=== PATIENT | female | born 1975 | race American Indian/Alaskan Native ===

== ENCOUNTER 2021-09-19 12:16 | Outpatient (CLI) | payer MEDICAID ==
[2021-09-19 13:08] LABS: Hematocrit 36.3 % (30.3-42.9); Hemoglobin 11.3 gm/dl (10.1-14.3); Mean Corpuscular HGB Conc 31 % (30-34); Mean Corpuscular Volume 81 fl (79-97); Platelet Count 314 K/mm3 (140-440); Red Blood Count 4.49 M/mm3 (3.65-5.03); Red Cell Distribution Width 17.6 % (13.2-15.2)
[2021-09-19 13:42] LABS: Albumin 3.2 g/dL (3.9-5); Calcium 8.9 mg/dL (8.4-10.2)
== END 2021-09-19 12:17 | disposition home or self-care (01) ==
LOC: LAB 12:16
PROVIDERS: ATTEND Internal Medicine
DX: J44.9 Chronic obstructive pulmonary disease, unspecified (principal); G47.33 Obstructive sleep apnea (adult) (pediatric); J45.909 Unspecified asthma, uncomplicated; E11.9 Type 2 diabetes mellitus without complications; J30.9 Allergic rhinitis, unspecified; D64.9 Anemia, unspecified; F32.9 Major depressive disorder, single episode, unspecified; M10.9 Gout, unspecified; I10 Essential (primary) hypertension; Z68.45 Body mass index [BMI] 70 or greater, adult
CPT/HCPCS: 36415; 80053; 82785; 84436; 84443; 85027

== ENCOUNTER 2022-02-23 23:17 | Inpatient (IN) | payer MEDICAID ==
[2022-02-24] MEDS ORDERED: ASPIRIN 325 MG TAB PO ONE (02:06)
[2022-02-24] MEDS ORDERED: NITROGLYCERIN 0.4 MG TAB SUBL SL PRN ×2 (02:21→05:00)
--- NOTE | 2022-02-24 02:26 | Emergency Department Report ---
ED General Adult HPI - General Chief complaint: Chest Pain Stated complaint: CHEST PAIN PUI?: No Time Seen by Provider: 02/24/22 02:15 Source: patient Mode of arrival: Stretcher Limitations: No Limitations - History of Present Illness Initial comments: 46-year-old female with medical history of hypertension, hyperlipidemia, COPD, asthma, brain tumor; brought in by EMS with concerns of chest discomfort since 1999 which patient states is a heaviness like sensation that is localized and not radiate anywhere else. According patient is worse when she lays flat is better when she sits up. Patient said that she is a smoker for the past 10 years which she smokes about half packs a day. Patient denies using cocaine. Patient endorsed myocardial infarction in her father less than 65 years old. Patient's blood pressure is 221/113 at the time my evaluation and patient said that she is pentecostal with her blood pressure medications. At the time my evaluation patient denies any other discomfort. Patient denies fever chill night sweat dizziness blurred vision lightheadedness headache tinnitus ear pain runny nose sore throat loss of taste loss of smell palpitation short of breath cough abdominal pain nausea vomiting diarrhea constipation joint pain muscle pain new rash and heat or cold intolerance. - Related Data Home Medications Medication Instructions Recorded Confirmed Last Taken ALBUTEROL NEB's [Proventil 0.083% 2.5 mg IH Q6H PRN 02/25/22 02/25/22 Unknown NEBS] Fluticasone/Salmeterol [Advair 1 puff IH BID 02/25/22 02/25/22 Unknown Diskus 500-50 mcg] Furosemide [Lasix TAB] 40 mg PO QDAY 02/25/22 02/25/22 Unknown Ipratropium [Atrovent] 0.5 mg IH Q6HRT 02/25/22 02/25/22 Unknown Potassium Chloride [K-Dur] 10 meq PO QDAY 02/25/22 02/25/22 Unknown carvediloL [Coreg] 25 mg PO BID 02/25/22 02/25/22 Unknown Allergies Allergy/AdvReac Type Severity Reaction Status Date / Time lisinopril Allergy Swelling Verified 02/25/22 12:17 ED Review of Systems ROS: Stated complaint: CHEST PAIN Other details as noted in HPI Comment: All other systems reviewed and negative Constitutional: no symptoms reported, see HPI Eyes: as per HPI ENT: as per HPI Respiratory: no symptoms reported, see HPI Cardiovascular: as per HPI, chest pain. denies: palpitations, dyspnea on exertion, orthopnea, edema, syncope, paroxysmal nocturnal dyspnea Endocrine: no symptoms reported, see HPI Gastrointestinal: as per HPI Genitourinary: as per HPI Musculoskeletal: as per HPI Skin: as per HPI Neurological: as per HPI Psychiatric: as per HPI Hematological/Lymphatic: as per HPI ED Past Medical Hx - Past Medical History Previous Medical History?: Yes Hx Hypertension: Yes Hx Heart Attack/AMI: No Hx Congestive Heart Failure: No Hx Diabetes: No Hx Asthma: Yes Hx COPD: Yes Additional medical history: Brain Tumor. O2 dependent. MORBID OBESITY - Surgical History Past Surgical History?: No - Social History Smoking Status: Current Every Day Smoker Substance Use Type: None - Medications Home Medications: Home Medications Medication Instructions Recorded Confirmed Last Taken Type ALBUTEROL NEB's [Proventil 0.083% 2.5 mg IH Q6H PRN 02/25/22 02/25/22 Unknown History NEBS] Fluticasone/Salmeterol [Advair 1 puff IH BID 02/25/22 02/25/22 Unknown History Diskus 500-50 mcg] Furosemide [Lasix TAB] 40 mg PO QDAY 02/25/22 02/25/22 Unknown History Ipratropium [Atrovent] 0.5 mg IH Q6HRT 02/25/22 02/25/22 Unknown History Potassium Chloride [K-Dur] 10 meq PO QDAY 02/25/22 02/25/22 Unknown History carvediloL [Coreg] 25 mg PO BID 02/25/22 02/25/22 Unknown History ED Physical Exam - General Limitations: No Limitations General appearance: alert, in no apparent distress, obese - Head Head exam: Present: atraumatic, normocephalic, normal inspection - Eye Eye exam: Present: normal appearance, PERRL, EOMI Pupils: Present: normal accommodation - ENT ENT exam: Present: normal exam, mucous membranes moist - Neck Neck exam: Present: normal inspection, full ROM - Respiratory Respiratory exam: Present: normal lung sounds bilaterally - Cardiovascular Cardiovascular Exam: Present: regular rate, normal rhythm, normal heart sounds ED Course Vital Signs 02/23/22 02/24/22 02/24/22 23:17 05:02 05:06 Temperature 98 F Pulse Rate 87 87 Respiratory 20 Rate Blood Pressure 168/98 212/101 Blood Pressure [Right] O2 Sat by Pulse 100 100 Oximetry 02/24/22 02/24/22 06:05 07:51 Temperature Pulse Rate 77 Respiratory 18 16 Rate Blood Pressure Blood Pressure 188/82 [Right] O2 Sat by Pulse 100 96 Oximetry - Reevaluation(s) Reevaluation #1: 02/24/22 03:53 HEART SCORE: 2 = [id number] (>3 RISK FACTORS = OBESE, HTN, HLD, SMOKER, FHX OF DC <65), T0 5 RISK FACTORS. 02/25/22 13:59 SPOKE TO HOSPITALIST WHO KINDLY ACCEPTED THE PATIENT. ED Medical Decision Making - Lab Data Result diagrams: 02/25/22 05:46 02/25/22 05:46 - EKG Data -: EKG Interpreted by Me EKG shows normal: sinus rhythm Rate: normal - EKG Data When compared to previous EKG there are: no significant change 02/24/22 03:53 EKG AT 02/23 AT 2234: SINUS RHYTHM W/ NO ST ELEVATION OR DEPRESSION. NO WELLEN WAVES. Critical care attestation.: If time is entered above; I have spent that time in minutes in the direct care of this critically ill patient, excluding procedure time. ED Disposition Clinical Impression: Atypical chest pain, ELY (acute kidney injury), Hypertensive crisis CHF (congestive heart failure) Qualifiers: Heart failure type: unspecified Heart failure chronicity: acute on chronic Qualified Code(s): I50.9 - Heart failure, unspecified Disposition: ADMITTED INPATIENT Is pt being admited?: Yes Does the pt Need Aspirin: Yes Condition: Stable Time of Disposition: 14:01
[2022-02-24 02:39] LABS: Basophils # (Auto) 0.2 K/mm3 (0.0-0.1); Basophils % (Auto) 2.5 % (0.0-1.8); Eosinophils # (Auto) 0.6 K/mm3 (0.0-0.4); Hematocrit 34.9 % (30.3-42.9); Hemoglobin 11.2 gm/dl (10.1-14.3); Lymphocytes # (Auto) 1.3 K/mm3 (1.2-5.4); Lymphocytes % (Auto) 13.9 % (13.4-35.0); Mean Corpuscular HGB Conc 32 % (30-34); Mean Corpuscular Volume 82 fl (79-97); Monocytes # (Auto) 0.7 K/mm3 (0.0-0.8); Monocytes % (Auto) 7.3 % (0.0-7.3); Platelet Count 290 K/mm3 (140-440); Red Blood Count 4.26 M/mm3 (3.65-5.03); Red Cell Distribution Width 17.6 % (13.2-15.2)
[2022-02-24 03:04] LABS: Creatine Kinase MB 3.2 ng/mL (0.0-4.0)
[2022-02-24 03:06] LABS: Alanine Aminotransferase 74 units/L (7-56); Albumin 3.7 g/dL (3.9-5); BUN/Creatinine Ratio 7; Blood Urea Nitrogen 16 mg/dL (7-17); Calcium 8.2 mg/dL (8.4-10.2); Hemolysis Index 24
--- NOTE | 2022-02-24 03:39 | XRay Report ---
CHEST 1 VIEW INDICATION / CLINICAL INFORMATION: chestpain. COMPARISON: 10/28/2010 FINDINGS: SUPPORT DEVICES: None. HEART / MEDIASTINUM: No significant abnormality. LUNGS / PLEURA: The radiograph is slightly underpenetrated due to the patient's body habitus as well as portable technique. There is pulmonary vascular congestion. The lungs are otherwise grossly clear without definite additional abnormality. No large pleural effusion.,. No pneumothorax. ADDITIONAL FINDINGS: No significant additional findings. IMPRESSION: 1. Suboptimal portable chest radiograph due to body habitus. 2. Pulmonary vascular congestion., Signer Name: Shirley Bowman MD Signed: 02/24/2022 3:34 AM Workstation Name: [id number]
[2022-02-24] MEDS ORDERED: MAGNESIUM HYDROXIDE (MOM) ORAL LIQD UDC PO PRN (05:00)
[2022-02-24] MEDS ORDERED: ACETAMINOPHEN 325 MG TAB PO PRN ×2 (05:00)
[2022-02-24] MEDS ORDERED: ONDANSETRON 4 MG/2 ML INJ IV PRN (05:00)
[2022-02-24] MEDS ORDERED: MORPHINE 2 MG/1 ML INJ IV PRN ×2 (05:00)
[2022-02-24] MEDS ORDERED: MORPHINE 4 MG/1 ML INJ IV PRN (05:00)
--- NOTE | 2022-02-24 05:17 | History and Physical Report ---
History of Present Illness Date of examination: 02/24/22 Date of admission: 02/24/2022 Chief complaint: Chest Pain History of present illness: 46-year-old -[place] female with known history of hypertension, hyperlipidemia, asthma, history of brain tumor brought into the emergency room today via EMS for evaluation of chest pain. Patient states she has been having heaviness on her chest for substernal. There has been no radiation. Heaviness is said to be worse upon lying flat and improves upon sitting up. Patient denies any cough, denies any shortness of breath, denies any fever or chills. Denies any headache or dizziness and denies any diaphoresis. Patient indicates that she just moved from [place] to [place] about a year ago and has not been able to establish with any primary care physician. She continues to smoke about a pack of cigarettes on a daily basis. She also indicates that she has a strong family history of [place] in father-when he was less than of 65 years old. Upon arrival in the emergency room, patient was found to be hypotensive with blood pressure systolic of 200s and diastolic of low 100s. She had a dose of IV labetalol. Work-up in the emergency room today, significant findings were that of creatinine of 2.2, BNP of 1983, AST of 48 and ALT 74, troponin within normal limits EKG did not show any acute findings Chest x-ray shows pulmonary vascular congestion. Patient being admitted with chest pain, hypertensive emergency, ELY and CHF exacerbation. Past History Past Medical History: COPD, hypertension, other (Asthma, Brain Tumor. O2 dependent. MORBID OBESITY) Social history: smoking (Current Every Day Smoker) Family history: no significant family history Medications and Allergies Allergies Allergy/AdvReac Type Severity Reaction Status Date / Time lisinopril Allergy Hives Verified 02/24/22 02:06 Active Meds: Active Medications Acetaminophen (Acetaminophen 325 Mg Tab) 650 mg PO Q4H PRN PRN Reason: Pain MILD(1-3)/Fever >100.5/ZAMORANO Acetaminophen (Acetaminophen 325 Mg Tab) 650 mg PO Q6H PRN PRN Reason: Pain, Mild (1-3) Aspirin (Aspirin Ec 325 Mg Tab) 325 mg PO QDAY EDWIN Magnesium Hydroxide (Magnesium Hydroxide (Mom) Oral Liqd Udc) 30 ml PO Q4H PRN PRN Reason: Constipation Morphine Sulfate (Morphine 2 Mg/1 Ml Inj) 2 mg IV Q4H PRN PRN Reason: Pain, Moderate (4-6) Morphine Sulfate (Morphine 4 Mg/1 Ml Inj) 4 mg IV Q4H PRN PRN Reason: Pain , Severe (7-10) Morphine Sulfate (Morphine 4 Mg/1 Ml Inj) 2 mg IV Q5MIN PRN PRN Reason: Chest Pain unrelieved by NTG Nitroglycerin (Nitroglycerin 0.4 Mg Tab Subl) 0.4 mg SL .Q5MIN PRN PRN Reason: Chest Pain Nitroglycerin (Nitroglycerin 0.4 Mg Tab Subl) 0.4 mg SL Q5M PRN PRN Reason: Chest Pain Ondansetron HCl (Ondansetron 4 Mg/2 Ml Inj) 4 mg IV Q8H PRN PRN Reason: Nausea And Vomiting Sodium Chloride (Sodium Chloride 0.9% 10 Ml Flush Syringe) 10 ml IV BID EDWIN Sodium Chloride (Sodium Chloride 0.9% 10 Ml Flush Syringe) 10 ml IV PRN PRN PRN Reason: LINE FLUSH Sodium Chloride (Sodium Chloride 0.9% 10 Ml Flush Syringe) 10 ml IV PRN PRN PRN Reason: LINE FLUSH Tramadol HCl (Tramadol 50 Mg Tab) 50 mg PO Q6H PRN PRN Reason: Pain, Moderate (4-6) Review of Systems Constitutional: no fever, no chills Ears, nose, mouth and throat: no nasal congestion, no sore throat Cardiovascular: chest pain, edema, no palpitations Respiratory: no cough, no shortness of breath Gastrointestinal: no abdominal pain, no nausea, no vomiting, no diarrhea Genitourinary Female: no flank pain, no dysuria, no hematuria Musculoskeletal: no neck pain, no low back pain Integumentary: no rash, no pruritis Neurological: no headaches, no confusion Psychiatric: no anxiety, no depression Endocrine: no polyphagia, no polydipsia, no polyuria, no nocturia Exam - Constitutional Vitals: Temp Pulse Resp BP Pulse Ox 98 F 87 20 212/101 100 02/23/22 23:17 02/24/22 05:06 02/23/22 23:17 02/24/22 05:06 02/23/22 23:17 General appearance: Present: no acute distress, obese (Morbidly Obese) - EENT Eyes: Present: PERRL, EOM intact. Absent: scleral icterus ENT: hearing intact, clear oral mucosa, dentition normal - Neck Neck: Present: supple, normal ROM - Respiratory Respiratory effort: normal Respiratory: bilateral: CTA - Cardiovascular Rhythm: regular Heart Sounds: Present: S1 & S2. Absent: gallop, systolic murmur, diastolic murmur, rub, click - Extremities Extremities: no ischemia, pulses intact, pulses symmetrical, normal temperature, normal color, Full ROM Extremity abnormal: edema (Trace bilateral ankle edema) Peripheral Pulses: within normal limits - Abdominal General gastrointestinal: Present: soft, non-tender, non-distended, normal bowel sounds. Absent: mass - Integumentary Integumentary: Present: clear, warm, dry, normal turgor. Absent: rash - Musculoskeletal Musculoskeletal: strength equal bilaterally - Psychiatric Psychiatric: appropriate mood/affect, intact judgment & insight, memory intact - Neurologic Neurologic: CNII-XII intact, no focal deficits, moves all extremities HEART Score - HEART Score Troponin: Troponin T < 0.010 ng/mL (0.00-0.029) 02/24/22 02:20 Results - Labs CBC & Chem 7: 02/24/22 02:20 02/24/22 02:20 Labs: Abnormal lab results 02/24/22 02/24/22 02/24/22 Range/Units 02:20 02:20 03:45 MCH 26 L (28-32) pg RDW 17.6 H (13.2-15.2) % Eos % (Auto) 7.0 H (0.0-4.3) % Baso % (Auto) 2.5 H (0.0-1.8) % Eos # (Auto) 0.6 H (0.0-0.4) K/mm3 Baso # (Auto) 0.2 H (0.0-0.1) K/mm3 Creatinine 2.2 H (0.6-1.2) mg/dL Calcium 8.2 L (8.4-10.2) mg/dL AST 148 H (5-40) units/L ALT 74 H (7-56) units/L Total Creatine Kinase 204 H (30-135) units/L NT-Pro-B Natriuret Pep 1983 H (0-450) pg/mL Albumin 3.7 L (3.9-5) g/dL Assessment and Plan Assessment: 1.Chest Pain 2.Hypertensive Emergency 3.CHF Exacerbation 4.Morbid Obesity 5.ELY 6. Elevated liver enzymes Plan: 1. Admitted to telemetry. We will monitor EKG. 2. We will check serial cardiac enzymes 3. Patient will be scheduled for echocardiogram 4. Consult placed to cardiology for evaluation of 5. Patient placed on hypertensive. Will monitor vital signs closely. 6. Will also request dietary consult. DVT Prophylaxis:SQ Heparin Code Status:Full Code
[2022-02-24] MEDS ORDERED: ASPIRIN 81 MG TAB CHEW ONE (05:26)
--- NOTE | 2022-02-24 08:17 | Progress Note ---
Assessment and Plan Assessment and plan: 46-year-old female with history of hypertension, hyperlipidemia, asthma presented through the emergency department with chief complaint of chest pain. Patient was admitted with diagnosis below: Chest pain Hypertensive urgency Acute kidney injury Acute heart failure, EF unknown Probable OHS/JIM COPD DM2 Morbid Obesity Tobacco Abuse 02/24/2022. Initial troponin is negative x2. Patient has slightly elevated BNP at 1982. Chest x-ray reveals pulmonary vascular congestion. Follow-up echocard iogram to assess left ventricular systolic function. Await cardiology consult and recommendations for ischemic evaluation. Continue chest pain protocol with serial EKG and troponin. Patient with elevated creatinine at 2.2. Patient appears to have a baseline creatinine of 1.6 in September 2021. Check renal ultrasound. Start labetalol for hypertension History Interval history: No new issues overnight Hospitalist Physical - Constitutional Vitals: Temp Pulse Resp BP Pulse Ox 98 F 77 18 188/82 100 02/23/22 23:17 02/24/22 06:05 02/24/22 06:05 02/24/22 06:05 02/24/22 06:05 General appearance: Present: no acute distress, obese (Morbidly Obese) - EENT Eyes: Present: PERRL, EOM intact ENT: hearing intact, clear oral mucosa, dentition normal - Neck Neck: Present: supple, normal ROM - Respiratory Respiratory effort: normal Respiratory: bilateral: CTA - Cardiovascular Rhythm: regular Heart Sounds: Present: S1 & S2. Absent: gallop, rub - Extremities Extremities: no ischemia, No edema, Full ROM - Abdominal General gastrointestinal: soft, non-tender, non-distended, normal bowel sounds - Integumentary Integumentary: Present: clear, warm, dry - Neurologic Neurologic: CNII-XII intact, moves all extremities HEART Score - HEART Score Troponin: Troponin T < 0.010 ng/mL (0.00-0.029) 02/24/22 05:06 Results - Labs CBC & Chem 7: 02/24/22 02:20 02/24/22 02:20 Labs: Laboratory Last Values WBC 9.0 K/mm3 (4.5-11.0) 02/24/22 02:20 RBC 4.26 M/mm3 (3.65-5.03) 02/24/22 02:20 Hgb 11.2 gm/dl (10.1-14.3) 02/24/22 02:20 Hct 34.9 % (30.3-42.9) 02/24/22 02:20 MCV 82 fl (79-97) 02/24/22 02:20 MCH 26 pg (28-32) L 02/24/22 02:20 MCHC 32 % (30-34) 02/24/22 02:20 RDW 17.6 % (13.2-15.2) H 02/24/22 02:20 Plt Count 290 K/mm3 (140-440) 02/24/22 02:20 Lymph % (Auto) 13.9 % (13.4-35.0) 02/24/22 02:20 [place] % (Auto) 7.3 % (0.0-7.3) 02/24/22 02:20 Eos % (Auto) 7.0 % (0.0-4.3) H 02/24/22 02:20 Baso % (Auto) 2.5 % (0.0-1.8) H 02/24/22 02:20 Lymph # (Auto) 1.3 K/mm3 (1.2-5.4) 02/24/22 02:20 [place] # (Auto) 0.7 K/mm3 (0.0-0.8) 02/24/22 02:20 Eos # (Auto) 0.6 K/mm3 (0.0-0.4) H 02/24/22 02:20 Baso # (Auto) 0.2 K/mm3 (0.0-0.1) H 02/24/22 02:20 Seg Neutrophils % 69.3 % (40.0-70.0) 02/24/22 02:20 Seg Neutrophils # 6.2 K/mm3 (1.8-7.7) 02/24/22 02:20 Sodium 140 mmol/L (137-145) 02/24/22 02:20 Potassium 4.4 mmol/L (3.6-5.0) 02/24/22 02:20 Chloride 106.1 mmol/L (98-107) 02/24/22 02:20 Carbon Dioxide 24 mmol/L (22-30) 02/24/22 02:20 Anion Gap 14 mmol/L 02/24/22 02:20 BUN 16 mg/dL (7-17) 02/24/22 02:20 Creatinine 2.2 mg/dL (0.6-1.2) H 02/24/22 02:20 Estimated GFR 29 ml/min 02/24/22 02:20 BUN/Creatinine Ratio 7 % 02/24/22 02:20 Glucose 96 mg/dL (65-100) 02/24/22 02:20 Calcium 8.2 mg/dL (8.4-10.2) L 02/24/22 02:20 Total Bilirubin 0.50 mg/dL (0.1-1.2) 02/24/22 02:20 AST 148 units/L (5-40) H 02/24/22 02:20 ALT 74 units/L (7-56) H 02/24/22 02:20 Alkaline Phosphatase 125 units/L (35-129) 02/24/22 02:20 Total Creatine Kinase 204 units/L (30-135) H 02/24/22 02:20 CK-MB (CK-2) 3.2 ng/mL (0.0-4.0) 02/24/22 02:20 Troponin T < 0.010 ng/mL (0.00-0.029) 02/24/22 05:06 NT-Pro-B Natriuret Pep 1983 pg/mL (0-450) H 02/24/22 03:45 Total Protein 6.7 g/dL (6.3-8.2) 02/24/22 02:20 Albumin 3.7 g/dL (3.9-5) L 02/24/22 02:20 Albumin/Globulin Ratio 1.2 % 02/24/22 02:20 Active Medications - Current Medications Current Medications: Generic Name Dose Route Start Last Admin Trade Name Freq PRN Reason Stop Dose Admin Acetaminophen 650 mg 02/24/22 05:00 Acetaminophen 325 Mg Tab PO Q4H PRN Pain MILD(1-3)/Fever >100.5/ZAMORANO Aspirin 325 mg 02/25/22 10:00 Aspirin Ec 325 Mg Tab PO QDAY EDWIN Hydralazine HCl 10 mg 02/24/22 05:41 Hydralazine 20 Mg/1 Ml Inj IV Q4H PRN Blood Pressure Labetalol HCl 200 mg 02/24/22 10:00 Labetalol 200 Mg Tab PO BID EDWIN Magnesium Hydroxide 30 ml 02/24/22 05:00 Magnesium Hydroxide (Mom) Oral Liqd Udc PO Q4H PRN Constipation Morphine Sulfate 2 mg 02/24/22 05:00 Morphine 2 Mg/1 Ml Inj IV Q4H PRN Pain, Moderate (4-6) Morphine Sulfate 4 mg 02/24/22 05:00 Morphine 4 Mg/1 Ml Inj IV Q4H PRN Pain , Severe (7-10) Morphine Sulfate 2 mg 02/24/22 05:00 Morphine 2 Mg/1 Ml Inj IV Q5MIN PRN Chest Pain unrelieved by NTG Nitroglycerin 0.4 mg 02/24/22 02:21 Nitroglycerin 0.4 Mg Tab Subl SL .Q5MIN PRN Chest Pain Ondansetron HCl 4 mg 02/24/22 05:00 Ondansetron 4 Mg/2 Ml Inj IV Q8H PRN Nausea And Vomiting Sodium Chloride 10 ml 02/24/22 10:00 Sodium Chloride 0.9% 10 Ml Flush Syringe IV BID EDWIN Sodium Chloride 10 ml 02/24/22 05:00 Sodium Chloride 0.9% 10 Ml Flush Syringe IV PRN PRN LINE FLUSH Tramadol HCl 50 mg 02/24/22 05:00 Tramadol 50 Mg Tab PO Q6H PRN Pain, Moderate (4-6)
--- NOTE | 2022-02-24 10:29 | Consultation ---
History of Present Illness - Reason for Consult Consult date: 02/24/22 acute renal failure - History of Present Illness The patient is a 46 YO AAF with known history of Morbid Obesity, Hypertension, Hyperlipidemia, Asthma, history of brain tumor, COPD/tobacco abuse and CKD who [facility] EMS for evaluation of chest pain since last night. Patient states the pain was substernal, heaviness in nature, constant, associated with SOB, worse when lying flat. Of note, pt reports running out of her medications, including Lasix, 4 days ago. She reports that she had a pro longed hospitalization in the [place] in [place], during which time they shocked her heart. She claims when she woke up in the ICU, she was told she had a brain tumor. Patient denies any cough, shortness of breath, fever, chills, headache, dizziness, rash dysuria, hematuria or syncope. In the ED, BP was around 210/100. Labs notable for creatinine of 2.2, BNP of 1983, AST 48, ALT 74 and troponin within normal limits. Chest x-ray shows pulmonary vascular congestion. Nephrology consulted for further evaluation and treatment of ELY. Past History Past Medical History: COPD, hypertension, other (Asthma, Brain Tumor. O2 dependent. MORBID OBESITY) Social history: smoking (Current Every Day Smoker) Family history: no significant family history Medications and Allergies Allergies Allergy/AdvReac Type Severity Reaction Status Date / Time lisinopril Allergy Hives Verified 02/24/22 02:06 Active Meds: Active Medications Acetaminophen (Acetaminophen 325 Mg Tab) 650 mg PO Q4H PRN PRN Reason: Pain MILD(1-3)/Fever >100.5/ZAMORANO Aspirin (Aspirin Ec 325 Mg Tab) 325 mg PO QDAY [facility] Hydralazine HCl (Hydralazine 20 Mg/1 Ml Inj) 10 mg IV Q4H PRN PRN Reason: Blood Pressure Labetalol HCl (Labetalol 200 Mg Tab) 200 mg PO BID [facility] Last Admin: 02/24/22 09:37 Dose: 200 mg Magnesium Hydroxide (Magnesium Hydroxide (Mom) Oral Liqd Udc) 30 ml PO Q4H PRN PRN Reason: Constipation Morphine Sulfate (Morphine 2 Mg/1 Ml Inj) 2 mg IV Q4H PRN PRN Reason: Pain, Moderate (4-6) Morphine Sulfate (Morphine 4 Mg/1 Ml Inj) 4 mg IV Q4H PRN PRN Reason: Pain , Severe (7-10) Morphine Sulfate (Morphine 2 Mg/1 Ml Inj) 2 mg IV Q5MIN PRN PRN Reason: Chest Pain unrelieved by NTG Nitroglycerin (Nitroglycerin 0.4 Mg Tab Subl) 0.4 mg SL .Q5MIN PRN PRN Reason: Chest Pain Ondansetron HCl (Ondansetron 4 Mg/2 Ml Inj) 4 mg IV Q8H PRN PRN Reason: Nausea And Vomiting Sodium Chloride (Sodium Chloride 0.9% 10 Ml Flush Syringe) 10 ml IV BID EDWIN Last Admin: 02/24/22 09:37 Dose: 10 ml Sodium Chloride (Sodium Chloride 0.9% 10 Ml Flush Syringe) 10 ml IV PRN PRN PRN Reason: LINE FLUSH Tramadol HCl (Tramadol 50 Mg Tab) 50 mg PO Q6H PRN PRN Reason: Pain, Moderate (4-6) Review of Systems All systems: negative Exam - Vital Signs Vital signs: Vital Signs Temp Pulse Resp BP Pulse Ox 98 F 87 20 168/98 100 02/23/22 23:17 02/23/22 23:17 02/23/22 23:17 02/23/22 23:17 02/23/22 23:17 Results - Lab Results 02/24/22 02:20 02/24/22 02:20 Most recent lab results Calcium 8.2 mg/dL (8.4-10.2) L 02/24/22 02:20 Assessment and Plan 1. Acute kidney injury: Suspect vasomotor ELY superimposed on CKD in the setting of CHF. Urine studies and Renal US negative ordered. Monitor renal function. Avoid nephrotoxic agents. Meds dosage based on GFR. 2. FEN: Volume overload, IV Lasix, monitor. Replete lytes as needed. Monitor lytes and volume status. 3. Decompensated CHF: Echo pending. Followed by Cards. Monitor. 4. Chest pain: Followed by Cards. 5. Elevated LFTs: ?Hepatic Congestion 6. Hypertensive urgency, POA: Adjust meds as needed. Monitor BP. 7. H/o COPD / Tobacco abuse: Counseled. 8. Morbid Obesity: Likely ?OHS/JIM. 9. ?Brain Tumor. 10. Medical Non-Compliance: Counseled. Subjective: Patient was seen and examined at the bedside. Family member at the bedside. Examination: General appearance: well-developed, morbidly obese, appears stated age, no distress HEENT: atraumatic, CLARI, no icterus Neck: trachea midline Respiratory: decreased breath sounds Heart: S1S2, regular, no murmur Abdomen: soft, obese, bowel sounds heard, NT Integumentary: no rash on the inspected area Neurologic: AO, conversing, able to move extremities Ext: no edema
--- NOTE | 2022-02-24 10:52 | Consultation ---
History of Present Illness Consult date: 02/24/22 Requesting physician: MAXINE HARRIS Consult reason: congestive heart failure History of present illness: Pt is a 46-year-old female with a hx of CHF, CKD, COPD/tobacco abuse, HTN, DM2, and morbid obesity who presented with complaints of substernal chest pressure that started around 9pm last night. Associated with SOB. Worse when lying flat. Constant since onset. Pain has improved this AM, but she does not know what relieved it. Of note, pt reports running out of her medications, including Lasix, 4 days ago. She is from [place] and has not established with a Advertising Representative in [place] yet. Reports she was previously under the care of BENITO Robison. She is not a great historian and is poorly informed about her medical issues. She tells me that she had a prolonged hospitalization in the ICU in [place], during which time "they shocked my heart." She claims when she woke up in the ICU, she was told she had a brain tumor. Previously unknown to our practice. Past History Past Medical History: arrhythmia (?VT/VF), COPD, diabetes, heart failure, hypertension, renal failure, other (brain tumor) Past Surgical History: denies: valve replacement, CABG, PTCA Social history: smoking (active smoker). denies: alcohol abuse Family history: no significant family history Medications and Allergies Allergies Allergy/AdvReac Type Severity Reaction Status Date / Time lisinopril Allergy Hives Verified 02/24/22 02:06 Active Meds: Active Medications Acetaminophen (Acetaminophen 325 Mg Tab) 650 mg PO Q4H PRN PRN Reason: Pain MILD(1-3)/Fever >100.5/ZAMORANO Aspirin (Aspirin Ec 325 Mg Tab) 325 mg PO QDAY [facility] Hydralazine HCl (Hydralazine 20 Mg/1 Ml Inj) 10 mg IV Q4H PRN PRN Reason: Blood Pressure Labetalol HCl (Labetalol 200 Mg Tab) 200 mg PO BID [facility] Last Admin: 02/24/22 09:37 Dose: 200 mg Magnesium Hydroxide (Magnesium Hydroxide (Mom) Oral Liqd Udc) 30 ml PO Q4H PRN PRN Reason: Constipation Morphine Sulfate (Morphine 2 Mg/1 Ml Inj) 2 mg IV Q4H PRN PRN Reason: Pain, Moderate (4-6) Morphine Sulfate (Morphine 4 Mg/1 Ml Inj) 4 mg IV Q4H PRN PRN Reason: Pain , Severe (7-10) Morphine Sulfate (Morphine 2 Mg/1 Ml Inj) 2 mg IV Q5MIN PRN PRN Reason: Chest Pain unrelieved by NTG Nitroglycerin (Nitroglycerin 0.4 Mg Tab Subl) 0.4 mg SL .Q5MIN PRN PRN Reason: Chest Pain Ondansetron HCl (Ondansetron 4 Mg/2 Ml Inj) 4 mg IV Q8H PRN PRN Reason: Nausea And Vomiting Sodium Chloride (Sodium Chloride 0.9% 10 Ml Flush Syringe) 10 ml IV BID EDWIN Last Admin: 02/24/22 09:37 Dose: 10 ml Sodium Chloride (Sodium Chloride 0.9% 10 Ml Flush Syringe) 10 ml IV PRN PRN PRN Reason: LINE FLUSH Tramadol HCl (Tramadol 50 Mg Tab) 50 mg PO Q6H PRN PRN Reason: Pain, Moderate (4-6) Review of Systems Constitutional: no fever, no chills Ears, nose, mouth and throat: no nasal congestion, no sore throat Cardiovascular: chest pain, orthopnea, edema, shortness of breath, dyspnea on exertion, paroxysmal nocturnal dyspnea, no palpitations, no syncope, no lightheadedness Respiratory: shortness of breath, dyspnea on exertion, no cough Gastrointestinal: no abdominal pain, no nausea, no vomiting Genitourinary Female: no dysuria Musculoskeletal: no myalgias Integumentary: no rash, no wounds Neurological: no seizures, no syncope, no vertigo, no headaches Endocrine: no cold intolerance, no heat intolerance Hematologic/Lymphatic: no easy bruising, no easy bleeding Allergic/Immunologic: no anaphylaxis Physical Examination Vital Signs Temp Pulse Resp BP Pulse Ox 98 F 87 20 168/98 100 02/23/22 23:17 02/23/22 23:17 02/23/22 23:17 02/23/22 23:17 02/23/22 23:17 General appearance: no acute distress HEENT: Positive: EOMI, Normocephaly Neck: Negative: JVD/HJR Cardiac: Positive: Reg Rate and Rhythm, S1/S2 Lungs: Positive: Decreased Breath Sounds Neuro: Positive: Grossly Intact Abdomen: Positive: Soft Skin: Negative: Rash Musculoskeletal: No Pain Extremities: Present: edema, warm Results 02/24/22 02:20 02/24/22 02:20 Cardiac Enzymes 02/24/22 Range/Units 02:20 AST 148 H (5-40) units/L CK-MB (CK-2) 3.2 (0.0-4.0) ng/mL CBC 02/24/22 Range/Units 02:20 WBC 9.0 (4.5-11.0) K/mm3 RBC 4.26 (3.65-5.03) M/mm3 Hgb 11.2 (10.1-14.3) gm/dl Hct 34.9 (30.3-42.9) % Plt Count 290 (140-440) K/mm3 Lymph # (Auto) 1.3 (1.2-5.4) K/mm3 [place] # (Auto) 0.7 (0.0-0.8) K/mm3 Eos # (Auto) 0.6 H (0.0-0.4) K/mm3 Baso # (Auto) 0.2 H (0.0-0.1) K/mm3 Comprehensive Metabolic Panel 02/24/22 Range/Units 02:20 Sodium 140 (137-145) mmol/L Potassium 4.4 (3.6-5.0) mmol/L Chloride 106.1 (98-107) mmol/L Carbon Dioxide 24 (22-30) mmol/L BUN 16 (7-17) mg/dL Creatinine 2.2 H (0.6-1.2) mg/dL Glucose 96 (65-100) mg/dL Calcium 8.2 L (8.4-10.2) mg/dL AST 148 H (5-40) units/L ALT 74 H (7-56) units/L Alkaline Phosphatase 125 (35-129) units/L Total Protein 6.7 (6.3-8.2) g/dL Albumin 3.7 L (3.9-5) g/dL - Imaging and Cardiology Echo: pending EKG: report reviewed, image reviewed EKG interpretations - Telemetry EKG Rhythm: Sinus Rhythm - EKG Sinus rhythms and dysrhythmias: sinus rhythm Chamber hypertrophy or enlargement: left ventricular hypertro Myocardial infarction: anterior MN (old age or i Assessment and Plan Assessment: Chest Pain Acute on Chronic HF?pEF ELY on CKD/?CRS Elevated LFTs/?Hepatic Congestion COPD HTN DM2 Morbid Obesity Tobacco Abuse ?OHS/JIM ?Brain Tumor (per pt report, no f/u) Medical Non-Compliance Plan: Echo pending. Cancel Lexiscan stress MPI. May be considered once resp/volume status has been optimized if within weight limit. Initiate IV Lasix 40mg BID with strict I/Os. Closely monitor renal indices. Stop Labetalol. Resume Coreg and titrate up as tolerated. Not on ACEI/ARB d/t allergy. May add Hydralazine if further BP optimization is needed. Pt seen in conjunction with Dr. Light, who agrees with the assessment and plan of care. - Patient Problems (1) Chest pain Current Visit: Yes Status: Acute (2) CHF (congestive heart failure) Current Visit: Yes Status: Acute Qualifiers: Heart failure type: unspecified Heart failure chronicity: acute on chronic Qualified Code(s): I50.9 - Heart failure, unspecified (3) Hypertensive urgency Current Visit: Yes Status: Acute (4) Morbid obesity Current Visit: Yes Status: Chronic (5) Medical non-compliance Current Visit: Yes Status: Chronic
[2022-02-24] MEDS: carvediloL 12.5 MG TAB PO SCH ×2 (12:06→21:55)
[2022-02-24] MEDS: hydrALAZINE 20 MG/1 ML INJ IV PRN ×2 (16:23→21:56)
[2022-02-24 17:16] LABS: Hepatitis B Surface Antigen Non-Reactive (Negative); Hepatitis C Virus Antibody Non-Reactive (NonReactive)
[2022-02-24] MEDS: FUROSEMIDE 40 MG/4 ML INJ IV SCH (17:17)
[2022-02-24] MEDS: traMADol 50 MG TAB PO PRN (22:02)
[2022-02-25] MEDS ORDERED: cloNIDine 0.1 MG TAB PO ONE (00:46)
--- NOTE | 2022-02-25 04:45 | Consultation ---
DATE OF CONSULTATION: 02/24/2022 REFERRING PHYSICIAN: David Verdin MD INDICATION: Increased liver function tests. HISTORY OF PRESENT ILLNESS: A 46-year-old black female with history of hypertension, high cholesterol, asthma, brain tumor in the past. The patient presented for chest pain in the substernal area. The patient was noted to have increased liver function tests and GI is consulted to aid in management. The patient denies a history of known liver disease in the past. She denies any chronic alcohol abuse. She denies any family history of liver disease. No other specific GI or liver complaints. PAST MEDICAL HISTORY: 1. COPD. 2. Hypertension. 3. Asthma. 4. Brain tumor. 5. Morbid obesity. MEDICATIONS: Reviewed and updated in chart. ALLERGIES: No known drug allergies. SOCIAL HISTORY: Denies alcohol. Positive smoker. FAMILY HISTORY: Colon cancer, IBD, and liver disease. REVIEW OF SYSTEMS: GENERAL: Reports some weakness. HEENT: Denies visual complaints or tinnitus. PULMONARY: No shortness of breath. Chest pain. GASTROINTESTINAL: Denies any complaints. PHYSICAL EXAMINATION: VITAL SIGNS: Temperature of 98.9, pulse 81, respirations 20, blood pressure 220/104. GENERAL: This is an obese black female, in mild distress. HEENT: Pupils round and reactive. PULMONARY: Rhonchi. CARDIOVASCULAR: Regular rate and rhythm. Normal S1, S2. ABDOMEN: Positive bowel sounds, soft. SKIN: No obvious rashes. LABORATORY DATA: Pertinent for white count of 9, hemoglobin and hematocrit 11.2 and 34.9, platelet count of 290. Chem-7 within normal limits. AST and ALT of 148 and 74 with a total bilirubin of 0.5. ASSESSMENT: A 46-year-old female with a history of CHF, coronary artery disease, arrhythmia, hypertension, acute renal failure as well as a brain tumor, now being seen by Gastrointestinal for increased liver function tests. Possibility of secondary congestion from the heart versus acute liver disease. Recommend virus versus med induced versus other. In any case, I suspect the liver disease is not a sign of acute hepatic failure. Generally, this could have been evaluated as an outpatient. Management as noted below. PLAN: 1. Follow liver function tests. 2. Avoid hepatotoxic drugs. 3. We will get liver related labs. 4. Liver ultrasound. 5. When the patient is cleared by other physicians, okay to discharge and can follow up as an outpatient. 6. We will follow. TID: [id number] RECEIPT: [id number] ACACIA/JAIMIE/LIVAN/KAVITA MTDLars
[2022-02-25] MEDS: FUROSEMIDE 40 MG/4 ML INJ IV SCH (05:43)
[2022-02-25 06:32] LABS: Hematocrit 33.7 % (30.3-42.9); Hemoglobin 11.3 gm/dl (10.1-14.3); Mean Corpuscular HGB Conc 34 % (30-34); Mean Corpuscular Volume 82 fl (79-97); Platelet Count 271 K/mm3 (140-440); Red Cell Distribution Width 17.4 % (13.2-15.2)
[2022-02-25 06:46] LABS: Alanine Aminotransferase 49 units/L (7-56); Albumin 3.4 g/dL (3.9-5); BUN/Creatinine Ratio 8; Blood Urea Nitrogen 15 mg/dL (7-17); Calcium 8.6 mg/dL (8.4-10.2); Hemolysis Index 53
[2022-02-25 07:04] LABS: Bilirubin,Direct < 0.2 mg/dL (0-0.2)
[2022-02-25 07:09] LABS: Basophils % (Manual) 0 % (0.0-1.8); Platelet Estimate Consistent w Auto; Total Cells Counted 100
--- NOTE | 2022-02-25 09:29 | Ultrasound Report ---
ULTRASOUND RENAL INDICATION / CLINICAL INFORMATION: [place]/CKD. COMPARISON: None available. FINDINGS: RIGHT KIDNEY: Length = 8.3 cm. - Echogenicity: Normal. - Parenchymal Thickness: Normal. - Hydronephrosis: None. - Cyst / Mass: None. - Stones: None seen. LEFT KIDNEY: Length = 8.3 cm. - Echogenicity: Normal. - Parenchymal Thickness: Normal. - Hydronephrosis: None. - Cyst / Mass: None. - Stones: None seen. URINARY BLADDER: No significant abnormality. FREE FLUID: None. ADDITIONAL FINDINGS: None. IMPRESSION: 1. Kidneys are small measuring 8.3 cm in length. No focal hepatic lesions are seen. There is no hydro nephrosis. Signer Name: Axel Dorado MD Signed: 02/25/2022 9:25 AM Workstation Name: [id number]
[2022-02-25] MEDS ORDERED: carvediloL 12.5 MG TAB PO SCH (09:39)
--- NOTE | 2022-02-25 09:50 | Progress Note ---
Assessment and Plan Assessment and plan: 46-year-old female with history of hypertension, hyperlipidemia, asthma presented through the emergency department with chief complaint of chest pain. Patient was admitted with diagnosis below: Chest pain Hypertensive urgency Acute kidney injury on CKD Acute heart failure, EF unknown Probable OHS/JIM COPD DM2 Morbid Obesity Tobacco Abuse Elevated LFTs, resolved Medical noncompliance 02/24/2022. Initial troponin is negative x2. Patient has slightly elevated BNP at 1983. Chest x-ray reveals pulmonary vascular congestion. Follow-up echocardiogram to assess left ventricular systolic function. Await cardiology consult and recommendations for ischemic evaluation. Continue chest pain protocol with serial EKG and troponin. Patient with elevated creatinine at 2.2. Patient appears to have a baseline creatinine of 1.6 in September 2021. Check renal ultrasound. Start labetalol for hypertension 02/25/2022. Follow-up echocardiogram. Continue Lasix 40 mg twice daily. Started hydralazine 50 mg p.o. 3 times daily. Not on ACEI/ARB d/t allergy. Continue Coreg per cardiology recommendations. Troponin negative x3. Elevated LFTs resolved History Interval history: No new issues overnight Hospitalist Physical - Constitutional Vitals: Temp Pulse Resp BP Pulse Ox 97.4 F L 75 22 177/85 93 02/25/22 07:58 02/25/22 07:58 02/25/22 07:58 02/25/22 07:58 02/25/22 07:58 General appearance: Present: no acute distress - EENT Eyes: Present: PERRL, EOM intact ENT: hearing intact, clear oral mucosa, dentition normal - Neck Neck: Present: supple, normal ROM - Respiratory Respiratory effort: normal Respiratory: bilateral: CTA - Cardiovascular Rhythm: regular Heart Sounds: Present: S1 & S2. Absent: gallop, rub - Extremities Extremities: no ischemia, No edema, Full ROM - Abdominal General gastrointestinal: soft, non-tender, non-distended, normal bowel sounds - Integumentary Integumentary: Present: clear, warm, dry - Neurologic Neurologic: CNII-XII intact, moves all extremities HEART Score - HEART Score Troponin: Troponin T < 0.010 ng/mL (0.00-0.029) 02/24/22 15:14 Results - Labs CBC & Chem 7: 02/25/22 05:46 02/25/22 05:46 Labs: Laboratory Last Values WBC 9.4 K/mm3 (4.5-11.0) 02/25/22 05:46 RBC 4.10 M/mm3 (3.65-5.03) 02/25/22 05:46 Hgb 11.3 gm/dl (10.1-14.3) 02/25/22 05:46 Hct 33.7 % (30.3-42.9) 02/25/22 05:46 MCV 82 fl (79-97) 02/25/22 05:46 MCH 28 pg (28-32) 02/25/22 05:46 MCHC 34 % (30-34) 02/25/22 05:46 RDW 17.4 % (13.2-15.2) H 02/25/22 05:46 Plt Count 271 K/mm3 (140-440) 02/25/22 05:46 Lymph % (Auto) 13.9 % (13.4-35.0) 02/24/22 02:20 [place] % (Auto) 7.3 % (0.0-7.3) 02/24/22 02:20 Eos % (Auto) Residential Support Worker 02/25/22 05:46 Baso % (Auto) 2.5 % (0.0-1.8) H 02/24/22 02:20 Lymph # (Auto) 1.3 K/mm3 (1.2-5.4) 02/24/22 02:20 [place] # (Auto) 0.7 K/mm3 (0.0-0.8) 02/24/22 02:20 Eos # (Auto) 0.6 K/mm3 (0.0-0.4) H 02/24/22 02:20 Baso # (Auto) 0.2 K/mm3 (0.0-0.1) H 02/24/22 02:20 Add Manual Diff Complete 02/25/22 05:46 Total Counted 100 02/25/22 05:46 Seg Neutrophils % 69.3 % (40.0-70.0) 02/24/22 02:20 Seg Neuts % (Manual) 56.0 % (40.0-70.0) 02/25/22 05:46 Band Neutrophils % 0 % 02/25/22 05:46 Lymphocytes % (Manual) 29.0 % (13.4-35.0) 02/25/22 05:46 Reactive Lymphs % (Man) 0 % 02/25/22 05:46 Monocytes % (Manual) 5.0 % (0.0-7.3) 02/25/22 05:46 Eosinophils % (Manual) 10.0 % (0.0-4.3) H 02/25/22 05:46 Basophils % (Manual) 0 % (0.0-1.8) 02/25/22 05:46 Metamyelocytes % 0 % 02/25/22 05:46 Myelocytes % 0 % 02/25/22 05:46 Promyelocytes % 0 % 02/25/22 05:46 Blast Cells % 0 % 02/25/22 05:46 Nucleated RBC % Not Reportable 02/25/22 05:46 Seg Neutrophils # 6.2 K/mm3 (1.8-7.7) 02/24/22 02:20 Seg Neutrophils # Man 5.3 K/mm3 (1.8-7.7) 02/25/22 05:46 Band Neutrophils # 0.0 K/mm3 02/25/22 05:46 Lymphocytes # (Manual) 2.7 K/mm3 (1.2-5.4) 02/25/22 05:46 Abs React Lymphs (Man) 0.0 K/mm3 02/25/22 05:46 Monocytes # (Manual) 0.5 K/mm3 (0.0-0.8) 02/25/22 05:46 Eosinophils # (Manual) 0.9 K/mm3 (0.0-0.4) H 02/25/22 05:46 Basophils # (Manual) 0.0 K/mm3 (0.0-0.1) 02/25/22 05:46 Metamyelocytes # 0.0 K/mm3 02/25/22 05:46 Myelocytes # 0.0 K/mm3 02/25/22 05:46 Promyelocytes # 0.0 K/mm3 02/25/22 05:46 Blast Cells # 0.0 K/mm3 02/25/22 05:46 WBC Morphology Not Reportable 02/25/22 05:46 Hypersegmented Neuts Not Reportable 02/25/22 05:46 Hyposegmented Neuts Not Reportable 02/25/22 05:46 Hypogranular Neuts Not Reportable 02/25/22 05:46 Smudge Cells Not Reportable 02/25/22 05:46 Toxic Granulation Not Reportable 02/25/22 05:46 Toxic Vacuolation Not Reportable 02/25/22 05:46 Dohle Bodies Not Reportable 02/25/22 05:46 Pelger-Huet Anomaly Not Reportable 02/25/22 05:46 Floyd Rods Not Reportable 02/25/22 05:46 Platelet Estimate Consistent w auto 02/25/22 05:46 Clumped Platelets Not Reportable 02/25/22 05:46 Plt Clumps, EDTA Not Reportable 02/25/22 05:46 Large Platelets Not Reportable 02/25/22 05:46 Giant Platelets Not Reportable 02/25/22 05:46 Platelet Satelliting Not Reportable 02/25/22 05:46 Plt Morphology Comment Not Reportable 02/25/22 05:46 RBC Morphology Not Reportable 02/25/22 05:46 Dimorphic RBCs Not Reportable 02/25/22 05:46 Polychromasia Not Reportable 02/25/22 05:46 Hypochromasia Not Reportable 02/25/22 05:46 Poikilocytosis Not Reportable 02/25/22 05:46 Anisocytosis Not Reportable 02/25/22 05:46 Microcytosis Not Reportable 02/25/22 05:46 Macrocytosis Not Reportable 02/25/22 05:46 Spherocytes Not Reportable 02/25/22 05:46 Pappenheimer Bodies Not Reportable 02/25/22 05:46 Sickle Cells Not Reportable 02/25/22 05:46 Target Cells Not Reportable 02/25/22 05:46 Tear Drop Cells Not Reportable 02/25/22 05:46 Ovalocytes Not Reportable 02/25/22 05:46 Helmet Cells Not Reportable 02/25/22 05:46 [place] Bodies Not Reportable 02/25/22 05:46 [place] Rings Not Reportable 02/25/22 05:46 Andrew Cells Not Reportable 02/25/22 05:46 Bite Cells Not Reportable 02/25/22 05:46 Crenated Cell Not Reportable 02/25/22 05:46 Elliptocytes Not Reportable 02/25/22 05:46 Acanthocytes (Spur) Not Reportable 02/25/22 05:46 Rouleaux Not Reportable 02/25/22 05:46 Hemoglobin C Crystals Not Reportable 02/25/22 05:46 Schistocytes Not Reportable 02/25/22 05:46 Malaria parasites Not Reportable 02/25/22 05:46 Stanislaw Bodies Not Reportable 02/25/22 05:46 Hem Pathologist Commnt No 02/25/22 05:46 Sodium 140 mmol/L (137-145) 02/25/22 05:46 Potassium 4.3 mmol/L (3.6-5.0) 02/25/22 05:46 Chloride 106.1 mmol/L (98-107) 02/25/22 05:46 Carbon Dioxide 21 mmol/L (22-30) L 02/25/22 05:46 Anion Gap 17 mmol/L 02/25/22 05:46 BUN 15 mg/dL (7-17) 02/25/22 05:46 Creatinine 2.0 mg/dL (0.6-1.2) H 02/25/22 05:46 Estimated GFR 33 ml/min 02/25/22 05:46 BUN/Creatinine Ratio 8 % 02/25/22 05:46 Glucose 94 mg/dL (65-100) 02/25/22 05:46 POC Glucose 100 mg/dL (70-105) 02/24/22 20:50 Calcium 8.6 mg/dL (8.4-10.2) 02/25/22 05:46 Ferritin 30.2 ng/mL (10.0-200.0) 02/25/22 05:46 Total Bilirubin 0.60 mg/dL (0.1-1.2) 02/25/22 05:46 Direct Bilirubin < 0.2 mg/dL (0-0.2) 02/25/22 05:46 Indirect Bilirubin 0.4 mg/dL 02/25/22 05:46 AST 28 units/L (5-40) 02/25/22 05:46 ALT 49 units/L (7-56) 02/25/22 05:46 Alkaline Phosphatase 114 units/L (35-129) 02/25/22 05:46 Total Creatine Kinase 204 units/L (30-135) H 02/24/22 02:20 CK-MB (CK-2) 3.2 ng/mL (0.0-4.0) 02/24/22 02:20 Troponin T < 0.010 ng/mL (0.00-0.029) 02/24/22 15:14 NT-Pro-B Natriuret Pep 1983 pg/mL (0-450) H 02/24/22 03:45 Total Protein 6.4 g/dL (6.3-8.2) 02/25/22 05:46 Albumin 3.4 g/dL (3.9-5) L 02/25/22 05:46 Albumin/Globulin Ratio 1.1 % 02/25/22 05:46 Hepatitis A IgM Ab Non-reactive (NonReactive) 02/24/22 15:15 Hep Bs Antigen Non-reactive (Negative) 02/24/22 15:15 Hep B Core IgM Ab Non-reactive (NonReactive) 02/24/22 15:15 Hepatitis C Antibody Non-reactive (NonReactive) 02/24/22 15:15 Active Medications - Current Medications Current Medications: Generic Name Dose Route Start Last Admin Trade Name Freq PRN Reason Stop Dose Admin Acetaminophen 650 mg 02/24/22 05:00 02/24/22 18:00 Acetaminophen 325 Mg Tab PO 650 mg Q4H PRN Administration Pain MILD(1-3)/Fever >100.5/ZAMORANO Aspirin 325 mg 02/25/22 10:00 Aspirin Ec 325 Mg Tab PO QDAY [facility] Carvedilol 25 mg 02/25/22 09:39 Carvedilol 12.5 Mg Tab PO BID [facility] Furosemide 40 mg 02/24/22 18:00 02/25/22 05:43 Furosemide 40 Mg/4 Ml Inj IV 40 mg 0600,1800 [facility] Administration Hydralazine HCl 10 mg 02/24/22 05:41 02/24/22 21:56 Hydralazine 20 Mg/1 Ml Inj IV 10 mg Q4H PRN Administration Blood Pressure Hydralazine HCl 50 mg 02/25/22 14:00 Hydralazine 25 Mg Tab PO Q8HR [facility] Magnesium Hydroxide 30 ml 02/24/22 05:00 Magnesium Hydroxide (Mom) Oral Liqd Udc PO Q4H PRN Constipation Morphine Sulfate 2 mg 02/24/22 05:00 Morphine 2 Mg/1 Ml Inj IV Q4H PRN Pain, Moderate (4-6) Morphine Sulfate 4 mg 02/24/22 05:00 Morphine 4 Mg/1 Ml Inj IV Q4H PRN Pain , Severe (7-10) Morphine Sulfate 2 mg 02/24/22 05:00 Morphine 2 Mg/1 Ml Inj IV Q5MIN PRN Chest Pain unrelieved by NTG Nitroglycerin 0.4 mg 02/24/22 02:21 Nitroglycerin 0.4 Mg Tab Subl SL .Q5MIN PRN Chest Pain Ondansetron HCl 4 mg 02/24/22 05:00 Ondansetron 4 Mg/2 Ml Inj IV Q8H PRN Nausea And Vomiting Sodium Chloride 10 ml 02/24/22 10:00 02/24/22 21:56 Sodium Chloride 0.9% 10 Ml Flush Syringe IV 10 ml BID EDWIN Administration Sodium Chloride 10 ml 02/24/22 05:00 Sodium Chloride 0.9% 10 Ml Flush Syringe IV PRN PRN LINE FLUSH Tramadol HCl 50 mg 02/24/22 05:00 02/24/22 22:02 Tramadol 50 Mg Tab PO 50 mg Q6H PRN Administration Pain, Moderate (4-6) Nutrition/Malnutrition Assess - Dietary Evaluation Nutrition/Malnutrition Findings: Nutrition Notes Start: 02/24/22 12:09 Freq: Status: Active Protocol: Document 02/24/22 12:10 TW (Rec: 02/24/22 12:29 TW [id number]) Nutrition Notes Need for Assessment generated from: MD Order,Education Initial or Follow up Brief Note Current Diagnosis COPD,Diabetes,Hypertension, Hyperlipidemia Other Pertinent Diagnosis asthma, brain tumor Current Diet cardiac/consistent carbohydrate Labs/Tests reviewed Pertinent Medications reviewed Height 5 ft 7 in Weight 226.796 kg [place] Body Weight (kg) 61.36 BMI 78.2 Weight Status Morbidly Obese Subjective/Other Information RD consulted for diet education. Pt presents with chest pain and hypotensive. Pt not a candidate for diet education at this time. Burn Absent Trauma Absent Nutrition Intervention Anticipated Discharge Needs: Unable to identify at this time Follow-Up By: 02/26/22 Additional Comments F/U for PO intakes,
[2022-02-25] MEDS: carvediloL 25 MG TAB PO SCH ×2 (10:31→22:32)
[2022-02-25] MEDS: ASPIRIN EC 325 MG TAB PO SCH (10:32)
--- NOTE | 2022-02-25 13:13 | Progress Note ---
Assessment and Plan 1. Acute kidney injury: Suspect vasomotor ELY superimposed on CKD in the setting of CHF. Renal US negative. Urine studies ordered. Monitor renal function. Creatinine level is improving. Avoid nephrotoxic agents. Meds dosage based on GFR. 2. FEN: Volume overload, IV Lasix, monitor. Replete lytes as needed. Monitor lytes and volume status. 3. Decompensated HFpEF: Echo with normal EF. Followed by Cards. Monitor. 4. Chest pain: Followed by Cards. 5. Elevated LFTs: ?Hepatic Congestion 6. Hypertensive urgency, POA: Adjust meds as needed. Monitor BP. 7. H/o COPD / Tobacco abuse: Counseled. 8. Morbid Obesity: Likely ?OHS/JIM. 9. ?Brain Tumor. 10. Medical Non-Compliance: Counseled. Subjective: Patient was seen and examined at the bedside. Doing ok. Examination: General appearance: well-developed, morbidly obese, appears stated age, no distress HEENT: atraumatic, CLARI, no icterus Neck: trachea midline Respiratory: decreased breath sounds Heart: S1S2, regular, no murmur Abdomen: soft, obese, bowel sounds heard, NT Integumentary: no rash on the inspected area Neurologic: AO, conversing, able to move extremities Ext: no edema Subjective Date of service: 02/25/22 Objective - Vital Signs Vital signs: Vital Signs - 12hr 02/25/22 02/25/22 02/25/22 03:53 03:57 07:58 Temperature 97.4 F L Pulse Rate 81 80 75 Respiratory 18 22 Rate Blood Pressure 184/81 177/85 O2 Sat by Pulse 95 93 Oximetry 02/25/22 02/25/22 10:31 11:27 Temperature 98.7 F Pulse Rate 74 72 Respiratory 18 Rate Blood Pressure 195/91 O2 Sat by Pulse 91 Oximetry - Lab 02/25/22 05:46 02/25/22 05:46 Most recent lab results Calcium 8.6 mg/dL (8.4-10.2) 02/25/22 05:46 Medications & Allergies - Medications Allergies/Adverse Reactions: Allergies lisinopril Allergy (Verified 02/25/22 14:29) Swelling Home Medications: Home Medications Medication Instructions Recorded Confirmed Last Taken Type ALBUTEROL NEB's [Proventil 0.083% 2.5 mg IH Q6H PRN 02/25/22 02/25/22 Unknown History NEBS] Fluticasone/Salmeterol [Advair 1 puff IH BID 02/25/22 02/25/22 Unknown History Diskus 500-50 mcg] Furosemide [Lasix TAB] 40 mg PO QDAY 02/25/22 02/25/22 Unknown History Ipratropium [Atrovent] 0.5 mg IH Q6HRT 02/25/22 02/25/22 Unknown History Potassium Chloride [K-Dur] 10 meq PO QDAY 02/25/22 02/25/22 Unknown History carvediloL [Coreg] 25 mg PO BID 02/25/22 02/25/22 Unknown History Active Medications: Generic Name Dose Route Start Last Admin Trade Name Freq PRN Reason Stop Dose Admin Acetaminophen 650 mg 02/24/22 05:00 02/24/22 18:00 Acetaminophen 325 Mg Tab PO 650 mg Q4H PRN Administration Pain MILD(1-3)/Fever >100.5/ZAMORANO Aspirin 325 mg 02/25/22 10:00 02/25/22 10:32 Aspirin Ec 325 Mg Tab PO 325 mg QDAY EDWIN Administration Carvedilol 25 mg 02/25/22 11:00 02/25/22 10:31 Carvedilol 25 Mg Tab PO 25 mg BID EDWNI Administration Furosemide 20 mg 02/26/22 10:00 Furosemide 20 Mg Tab PO QDAY [facility] Hydralazine HCl 10 mg 02/24/22 05:41 02/24/22 21:56 Hydralazine 20 Mg/1 Ml Inj IV 10 mg Q4H PRN Administration Blood Pressure Hydralazine HCl 50 mg 02/25/22 14:00 Hydralazine 25 Mg Tab PO Q8HR [facility] Magnesium Hydroxide 30 ml 02/24/22 05:00 Magnesium Hydroxide (Mom) Oral Liqd Udc PO Q4H PRN Constipation Morphine Sulfate 2 mg 02/24/22 05:00 Morphine 2 Mg/1 Ml Inj IV Q4H PRN Pain, Moderate (4-6) Morphine Sulfate 4 mg 02/24/22 05:00 Morphine 4 Mg/1 Ml Inj IV Q4H PRN Pain , Severe (7-10) Morphine Sulfate 2 mg 02/24/22 05:00 Morphine 2 Mg/1 Ml Inj IV Q5MIN PRN Chest Pain unrelieved by NTG Nitroglycerin 0.4 mg 02/24/22 02:21 Nitroglycerin 0.4 Mg Tab Subl SL .Q5MIN PRN Chest Pain Ondansetron HCl 4 mg 02/24/22 05:00 Ondansetron 4 Mg/2 Ml Inj IV Q8H PRN Nausea And Vomiting Sodium Chloride 10 ml 02/24/22 10:00 02/25/22 10:32 Sodium Chloride 0.9% 10 Ml Flush Syringe IV 10 ml BID EDWIN Administration Sodium Chloride 10 ml 02/24/22 05:00 Sodium Chloride 0.9% 10 Ml Flush Syringe IV PRN PRN LINE FLUSH Tramadol HCl 50 mg 02/24/22 05:00 02/24/22 22:02 Tramadol 50 Mg Tab PO 50 mg Q6H PRN Administration Pain, Moderate (4-6)
--- NOTE | 2022-02-25 13:15 | Progress Note ---
Assessment and Plan Pt is a 46-year-old female with a hx of CHF, CKD, COPD/tobacco abuse, HTN, DM2, and morbid obesity who presented with complaints of substernal chest pressure that began the night prior to admission Chest Pain Acute on Chronic HF?pEF ELY on CKD/?CRS Elevated LFTs/?Hepatic Congestion COPD HTN DM2 Morbid Obesity Tobacco Abuse ?OHS/JIM ?Brain Tumor (per pt report, no f/u) Medical Non-Compliance Echo 02/24/2022-EF 55 to 60%. Mild to moderate concentric LVH. Right ventricular systolic function is normal. No aortic regurgitation is present. Trace mitral regurgitation. Trace tricuspid regurgitation Plan: Echo results noted above Will stop IV Lasix and convert to Lasix p.o. Patient remains hypertensive will increase Coreg to 25 mg p.o. twice daily Not on ACEI/ARB d/t allergy. Agree with hydralazine 50 mg p.o. every 8 hours Unable to do ischemic eval at this time due to patient's size/weight Cardiac status otherwise stable Pt seen in conjunction with Dr. Medrano, who agrees with the assessment and plan of care. - Patient Problems (1) Obesity hypoventilation syndrome Current Visit: Yes Status: Acute (2) COPD (chronic obstructive pulmonary disease) Current Visit: Yes Status: Acute (3) ELY (acute kidney injury) Current Visit: Yes Status: Acute (4) Chest pain Current Visit: Yes Status: Acute (5) Hypertensive urgency Current Visit: Yes Status: Acute (6) Medical non-compliance Current Visit: Yes Status: Chronic (7) Morbid obesity Current Visit: Yes Status: Chronic Subjective Date of service: 02/25/22 Principal diagnosis: Acute on chronic respiratory, obesity hypoventilation syndrome Interval history: Patient resting in bed with CPAP on. Patient reports feeling better this a.m. Sinus 70s on monitor with no events Objective Vital Signs Temp Pulse Resp BP Pulse Ox 02/25/22 11:27 98.7 F 72 18 195/91 91 02/25/22 10:31 74 02/25/22 07:58 97.4 F L 75 22 177/85 93 02/25/22 03:57 80 18 184/81 95 02/25/22 03:53 81 02/25/22 00:16 84 230/112 02/24/22 23:53 20 230/112 02/24/22 21:56 81 220/104 02/24/22 21:55 81 220/104 02/24/22 19:51 18 96 02/24/22 19:21 98.9 F 81 20 220/104 96 02/24/22 17:34 75 204/106 98 02/24/22 16:21 63 99 02/24/22 15:55 73 02/24/22 15:52 73 - Physical Examination General: No Apparent Distress HEENT: Positive: EOMI, Normocephaly Neck: Positive: trachea midline. Negative: JVD/HJR Cardiac: Positive: Reg Rate and Rhythm Lungs: Positive: Decreased Breath Sounds Neuro: Positive: Grossly Intact Abdomen: Positive: Soft Skin: Negative: Rash Musculoskeletal: No Pain Extremities: Present: edema, warm - Labs and Meds Cardiac Enzymes 02/25/22 Range/Units 05:46 AST 28 (5-40) units/L CBC 02/25/22 Range/Units 05:46 WBC 9.4 (4.5-11.0) K/mm3 RBC 4.10 (3.65-5.03) M/mm3 Hgb 11.3 (10.1-14.3) gm/dl Hct 33.7 (30.3-42.9) % Plt Count 271 (140-440) K/mm3 Comprehensive Metabolic Panel 02/25/22 Range/Units 05:46 Sodium 140 (137-145) mmol/L Potassium 4.3 (3.6-5.0) mmol/L Chloride 106.1 (98-107) mmol/L Carbon Dioxide 21 L (22-30) mmol/L BUN 15 (7-17) mg/dL Creatinine 2.0 H (0.6-1.2) mg/dL Glucose 94 (65-100) mg/dL Calcium 8.6 (8.4-10.2) mg/dL Direct Bilirubin < 0.2 (0-0.2) mg/dL Indirect Bilirubin 0.4 mg/dL AST 28 (5-40) units/L ALT 49 (7-56) units/L Alkaline Phosphatase 114 (35-129) units/L Total Protein 6.4 (6.3-8.2) g/dL Albumin 3.4 L (3.9-5) g/dL - Imaging and Cardiology EKG: report reviewed, image reviewed Echo: report reviewed - Telemetry EKG Rhythm: Sinus Rhythm - EKG Sinus rhythms and dysrhythmias: sinus rhythm Chamber hypertrophy or enlargement: left ventricular hypertro Myocardial infarction: anterior IN (old age or i
--- NOTE | 2022-02-25 14:51 | Gastroenterology Progress Note ---
Assessment and Plan 1. GI: pt w/ noted initial increased lft's now improved - follow labs - diet as tolerated - no need further GI input at this time - will sign off, call if needed Subjective Date of service: 02/25/22 Principal diagnosis: Acute on chronic respiratory, obesity hypoventilation syndrome Interval history: - pt without GI complaints overnight Objective - Constitutional Vitals: Temp Pulse Resp BP Pulse Ox 98.7 F 72 18 195/91 91 02/25/22 11:27 02/25/22 11:27 02/25/22 11:27 02/25/22 11:27 02/25/22 11:27 General appearance: no acute distress - EENT Eyes: PERRL - Respiratory Respiratory: bilateral: CTA - Cardiovascular Rhythm: regular Heart Sounds: Present: S1 & S2 - Gastrointestinal General gastrointestinal: Present: soft, non-tender, non-distended - Labs CBC & Chem 7: 02/25/22 05:46 02/25/22 05:46 Labs: Laboratory Results - last 24 hr 02/24/22 02/24/22 02/24/22 15:14 15:15 20:50 WBC RBC Hgb Hct MCV MCH MCHC RDW Plt Count Eos % (Auto) Add Manual Diff Total Counted Seg Neuts % (Manual) Band Neutrophils % Lymphocytes % (Manual) Reactive Lymphs % (Man) Monocytes % (Manual) Eosinophils % (Manual) Basophils % (Manual) Metamyelocytes % Myelocytes % Promyelocytes % Blast Cells % Nucleated RBC % Seg Neutrophils # Man Band Neutrophils # Lymphocytes # (Manual) Abs React Lymphs (Man) Monocytes # (Manual) Eosinophils # (Manual) Basophils # (Manual) Metamyelocytes # Myelocytes # Promyelocytes # Blast Cells # WBC Morphology Hypersegmented Neuts Hyposegmented Neuts Hypogranular Neuts Smudge Cells Toxic Granulation Toxic Vacuolation Dohle Bodies Pelger-Huet Anomaly Floyd Rods Platelet Estimate Clumped Platelets Plt Clumps, EDTA Large Platelets Giant Platelets Platelet Satelliting Plt Morphology Comment RBC Morphology Dimorphic RBCs Polychromasia Hypochromasia Poikilocytosis Anisocytosis Microcytosis Macrocytosis Spherocytes Pappenheimer Bodies Sickle Cells Target Cells Tear Drop Cells Ovalocytes Helmet Cells [place] Bodies [place] Rings [place] Cells Bite Cells Crenated Cell Elliptocytes Acanthocytes (Spur) Rouleaux Hemoglobin C Crystals Schistocytes Malaria parasites Stanislaw Bodies Hem Pathologist Commnt Sodium Potassium Chloride Carbon Dioxide Anion Gap BUN Creatinine Estimated GFR BUN/Creatinine Ratio Glucose POC Glucose 100 Calcium Ferritin Total Bilirubin Direct Bilirubin Indirect Bilirubin AST ALT Alkaline Phosphatase Troponin T < 0.010 Total Protein Albumin Albumin/Globulin Ratio Hepatitis A IgM Ab Non-reactive Hep Bs Antigen Non-reactive Hep B Core IgM Ab Non-reactive Hepatitis C Antibody Non-reactive 02/25/22 02/25/22 02/25/22 05:46 05:46 05:46 WBC 9.4 RBC 4.10 Hgb 11.3 Hct 33.7 MCV 82 MCH 28 MCHC 34 RDW 17.4 H Plt Count 271 Eos % (Auto) Vertical Mill Operator Add Manual Diff Complete Total Counted 100 Seg Neuts % (Manual) 56.0 Band Neutrophils % 0 Lymphocytes % (Manual) 29.0 Reactive Lymphs % (Man) 0 Monocytes % (Manual) 5.0 Eosinophils % (Manual) 10.0 H Basophils % (Manual) 0 Metamyelocytes % 0 Myelocytes % 0 Promyelocytes % 0 Blast Cells % 0 Nucleated RBC % Not Reportable Seg Neutrophils # Man 5.3 Band Neutrophils # 0.0 Lymphocytes # (Manual) 2.7 Abs React Lymphs (Man) 0.0 Monocytes # (Manual) 0.5 Eosinophils # (Manual) 0.9 H Basophils # (Manual) 0.0 Metamyelocytes # 0.0 Myelocytes # 0.0 Promyelocytes # 0.0 Blast Cells # 0.0 WBC Morphology Not Reportable Hypersegmented Neuts Not Reportable Hyposegmented Neuts Not Reportable Hypogranular Neuts Not Reportable Smudge Cells Not Reportable Toxic Granulation Not Reportable Toxic Vacuolation Not Reportable Dohle Bodies Not Reportable Pelger-Huet Anomaly Not Reportable Floyd Rods Not Reportable Platelet Estimate Consistent w auto Clumped Platelets Not Reportable Plt Clumps, EDTA Not Reportable Large Platelets Not Reportable Giant Platelets Not Reportable Platelet Satelliting Not Reportable Plt Morphology Comment Not Reportable RBC Morphology Not Reportable Dimorphic RBCs Not Reportable Polychromasia Not Reportable Hypochromasia Not Reportable Poikilocytosis Not Reportable Anisocytosis Not Reportable Microcytosis Not Reportable Macrocytosis Not Reportable Spherocytes Not Reportable Pappenheimer Bodies Not Reportable Sickle Cells Not Reportable Target Cells Not Reportable Tear Drop Cells Not Reportable Ovalocytes Not Reportable Helmet Cells Not Reportable [place] Bodies Not Reportable [place] Rings Not Reportable [place] Cells Not Reportable Bite Cells Not Reportable Crenated Cell Not Reportable Elliptocytes Not Reportable Acanthocytes (Spur) Not Reportable Rouleaux Not Reportable Hemoglobin C Crystals Not Reportable Schistocytes Not Reportable Malaria parasites Not Reportable Stanislaw Bodies Not Reportable Hem Pathologist Commnt No Sodium 140 Potassium 4.3 Chloride 106.1 Carbon Dioxide 21 L Anion Gap 17 BUN 15 Creatinine 2.0 H Estimated GFR 33 BUN/Creatinine Ratio 8 Glucose 94 POC Glucose Calcium 8.6 Ferritin 30.2 Total Bilirubin 0.60 Direct Bilirubin < 0.2 Indirect Bilirubin 0.4 AST 28 ALT 49 Alkaline Phosphatase 114 Troponin T Total Protein 6.4 Albumin 3.4 L Albumin/Globulin Ratio 1.1 Hepatitis A IgM Ab Hep Bs Antigen Hep B Core IgM Ab Hepatitis C Antibody 02/25/22 02/25/22 07:57 11:27 WBC RBC Hgb Hct MCV MCH MCHC RDW Plt Count Eos % (Auto) Add Manual Diff Total Counted Seg Neuts % (Manual) Band Neutrophils % Lymphocytes % (Manual) Reactive Lymphs % (Man) Monocytes % (Manual) Eosinophils % (Manual) Basophils % (Manual) Metamyelocytes % Myelocytes % Promyelocytes % Blast Cells % Nucleated RBC % Seg Neutrophils # Man Band Neutrophils # Lymphocytes # (Manual) Abs React Lymphs (Man) Monocytes # (Manual) Eosinophils # (Manual) Basophils # (Manual) Metamyelocytes # Myelocytes # Promyelocytes # Blast Cells # WBC Morphology Hypersegmented Neuts Hyposegmented Neuts Hypogranular Neuts Smudge Cells Toxic Granulation Toxic Vacuolation Dohle Bodies Pelger-Huet Anomaly Floyd Rods Platelet Estimate Clumped Platelets Plt Clumps, EDTA Large Platelets Giant Platelets Platelet Satelliting Plt Morphology Comment RBC Morphology Dimorphic RBCs Polychromasia Hypochromasia Poikilocytosis Anisocytosis Microcytosis Macrocytosis Spherocytes Pappenheimer Bodies Sickle Cells Target Cells Tear Drop Cells Ovalocytes Helmet Cells [place] Bodies [place] Rings [place] Cells Bite Cells Crenated Cell Elliptocytes Acanthocytes (Spur) Rouleaux Hemoglobin C Crystals Schistocytes Malaria parasites Stanislaw Bodies Hem Pathologist Commnt Sodium Potassium Chloride Carbon Dioxide Anion Gap BUN Creatinine Estimated GFR BUN/Creatinine Ratio Glucose POC Glucose 95 85 Calcium Ferritin Total Bilirubin Direct Bilirubin Indirect Bilirubin AST ALT Alkaline Phosphatase Troponin T Total Protein Albumin Albumin/Globulin Ratio Hepatitis A IgM Ab Hep Bs Antigen Hep B Core IgM Ab Hepatitis C Antibody
[2022-02-25] MEDS: hydrALAZINE 25 MG TAB PO SCH ×2 (16:11→22:32)
[2022-02-25] MEDS: hydrALAZINE 20 MG/1 ML INJ IV PRN (19:33)
[2022-02-26] MEDS: traMADol 50 MG TAB PO PRN (01:11)
[2022-02-26] MEDS: hydrALAZINE 25 MG TAB PO SCH ×2 (05:56→13:23)
[2022-02-26 06:39] LABS: Calcium 8.3 mg/dL (8.4-10.2)
[2022-02-26] MEDS: ASPIRIN EC 325 MG TAB PO SCH (09:10)
[2022-02-26] MEDS: carvediloL 25 MG TAB PO SCH (09:10)
[2022-02-26] MEDS ORDERED: FUROSEMIDE 20 MG TAB PO SCH (10:00)
--- NOTE | 2022-02-26 14:27 | Progress Note ---
Assessment and Plan 1. Acute kidney injury: Suspect vasomotor ELY superimposed on CKD in the setting of CHF. Renal US negative. Urine studies ordered. Monitor renal function. Creatinine level fluctuates. Avoid nephrotoxic agents. Meds dosage based on GFR. 2. FEN: Volume overload, IV Lasix, monitor. Replete lytes as needed. Monitor lytes and volume status. 3. Decompensated HFpEF: Echo with normal EF. Followed by Cards. Monitor. 4. Chest pain: Followed by Cards. 5. Elevated LFTs: ?Hepatic Congestion 6. Hypertensive urgency, POA: Adjust meds as needed. Monitor BP. 7. H/o COPD / Tobacco abuse: Counseled. 8. Morbid Obesity: Likely OHS/JIM. 9. ?Brain Tumor. 10. Medical Non-Compliance: Counseled. F/u in 1-2 weeks. Subjective: Patient was seen and examined at the bedside. Doing ok. Family member at the bedside. Examination: General appearance: well-developed, morbidly obese, appears stated age, no distress HEENT: atraumatic, CLARI, no icterus Neck: trachea midline Respiratory: decreased breath sounds Heart: S1S2, regular, no murmur Abdomen: soft, obese, bowel sounds heard, NT Integumentary: no rash on the inspected area Neurologic: AO, conversing, able to move extremities Ext: no edema Subjective Date of service: 02/26/22 Principal diagnosis: Acute on chronic respiratory, obesity hypoventilation syndrome Objective - Vital Signs Vital signs: Vital Signs - 12hr 02/26/22 02/26/22 02/26/22 03:00 05:00 05:06 Temperature 100.1 F H Pulse Rate 67 64 Respiratory 20 18 Rate Blood Pressure Blood Pressure 180/79 [Right] O2 Sat by Pulse 96 96 Oximetry 02/26/22 02/26/22 02/26/22 05:56 09:10 09:54 Temperature 98.2 F Pulse Rate 64 75 73 Respiratory 18 Rate Blood Pressure 180/79 Blood Pressure 179/89 [Right] O2 Sat by Pulse 96 Oximetry 02/26/22 02/26/22 13:23 13:32 Temperature Pulse Rate 74 73 Respiratory 18 Rate Blood Pressure Blood Pressure 179/80 [Right] O2 Sat by Pulse Oximetry - Lab 02/25/22 05:46 02/26/22 05:57 Most recent lab results Calcium 8.3 mg/dL (8.4-10.2) L 02/26/22 05:57 Medications & Allergies - Medications Allergies/Adverse Reactions: Allergies lisinopril Allergy (Verified 02/25/22 14:29) Swelling Home Medications: Home Medications Medication Instructions Recorded Confirmed Last Taken Type ALBUTEROL NEB's [Proventil 0.083% 2.5 mg IH Q6H PRN 02/25/22 02/25/22 Unknown History NEBS] Fluticasone/Salmeterol [Advair 1 puff IH BID 02/25/22 02/25/22 Unknown History Diskus 500-50 mcg] Ipratropium [Atrovent NEB] 0.5 mg IH Q6HRT 02/25/22 02/25/22 Unknown History Potassium Chloride [K-Dur] 10 meq PO QDAY 02/25/22 02/25/22 Unknown History Furosemide [Lasix TAB] 20 mg PO QDAY #30 tablet 02/26/22 Unknown Rx Hydralazine HCl 50 mg PO TID #60 02/26/22 Unknown Rx carvediloL [Coreg] 25 mg PO BID #60 tablet 02/26/22 Unknown Rx traMADoL [Ultram 50 MG tab] 50 mg PO Q6H PRN #12 tablet 02/26/22 Unknown Rx Active Medications: Generic Name Dose Route Start Last Admin Trade Name Freq PRN Reason Stop Dose Admin Acetaminophen 650 mg 02/24/22 05:00 02/24/22 18:00 Acetaminophen 325 Mg Tab PO 650 mg Q4H PRN Administration Pain MILD(1-3)/Fever >100.5/ZAMORANO Aspirin 325 mg 02/25/22 10:00 02/26/22 09:10 Aspirin Ec 325 Mg Tab PO 325 mg QDAY EDWIN Administration Carvedilol 25 mg 02/25/22 11:00 02/26/22 09:10 Carvedilol 25 Mg Tab PO 25 mg BID EDWIN Administration Furosemide 20 mg 02/26/22 10:00 02/26/22 09:10 Furosemide 20 Mg Tab PO 20 mg QDAY EDWIN Administration Hydralazine HCl 10 mg 02/24/22 05:41 02/25/22 19:33 Hydralazine 20 Mg/1 Ml Inj IV 10 mg Q4H PRN Administration Blood Pressure Hydralazine HCl 50 mg 02/25/22 14:00 02/26/22 13:23 Hydralazine 25 Mg Tab PO 50 mg Q8HR EDWIN Administration Magnesium Hydroxide 30 ml 02/24/22 05:00 Magnesium Hydroxide (Mom) Oral Liqd Udc PO Q4H PRN Constipation Morphine Sulfate 2 mg 02/24/22 05:00 Morphine 2 Mg/1 Ml Inj IV Q4H PRN Pain, Moderate (4-6) Morphine Sulfate 4 mg 02/24/22 05:00 Morphine 4 Mg/1 Ml Inj IV Q4H PRN Pain , Severe (7-10) Morphine Sulfate 2 mg 02/24/22 05:00 Morphine 2 Mg/1 Ml Inj IV Q5MIN PRN Chest Pain unrelieved by NTG Nitroglycerin 0.4 mg 02/24/22 02:21 Nitroglycerin 0.4 Mg Tab Subl SL .Q5MIN PRN Chest Pain Ondansetron HCl 4 mg 02/24/22 05:00 Ondansetron 4 Mg/2 Ml Inj IV Q8H PRN Nausea And Vomiting Sodium Chloride 10 ml 02/24/22 10:00 02/26/22 09:12 Sodium Chloride 0.9% 10 Ml Flush Syringe IV 10 ml BID EDWIN Administration Sodium Chloride 10 ml 02/24/22 05:00 Sodium Chloride 0.9% 10 Ml Flush Syringe IV PRN PRN LINE FLUSH Tramadol HCl 50 mg 02/24/22 05:00 02/26/22 01:11 Tramadol 50 Mg Tab PO 50 mg Q6H PRN Administration Pain, Moderate (4-6)
--- NOTE | 2022-02-26 15:32 | Discharge Summary ---
Providers - Providers Date of Admission: 02/24/22 05:02 Date of discharge: 02/26/22 Attending physician: LIAT VALDERRAMA 02/24/22 Consult to Cardiac Rehabilitation [CONS] Routine Reason For Exam: Phase I 02/24/22 05:00 Consult to Physician [CONS] Routine Comment: Consulting Provider: JOSH FUENTES Physician Instructions: Reason For Exam: ELY 02/24/22 05:02 Consult to Cardiology [CONS] Routine Consulting Provider: SKY MEDRANO Reason For Exam: CHF EXACERBATION 02/24/22 05:44 Consult to Dietitian/Nutrition [CONS] Routine Physician Instructions: Reason For Exam: Morbid obesity Reason for Consult: Diet education 02/24/22 06:31 Consult to Physician [CONS] Routine Comment: Consulting Provider: GEORGE NICHOLS Physician Instructions: Reason For Exam: Elevated Liver Enzymes 02/24/22 06:35 Consult to Case Management [CONS] Routine Services Needed at Discharge: Biology Faculty Member Notified:: CASE MANAGEMENT Comment:: Needs assistance withh medications, F/U with PCP 02/26/22 11:19 Physical Therapy Evaluation and Treat [CONS] Routine Comment: Pt eval and treat Reason For Exam: debility Primary care physician: FLOAT REMOVER Hospitalization Reason for admission: Substernal chest pain of 1 day duration Condition: Stable Pertinent studies: Chest x-ray pulmonary vascular congestion Echocardiogram LVEF 55 to 60% mild to moderate LVH Renal ultrasound; kidneys are small measuring 8.3 cm in length no focal hepatic lesions are seen no hydronephrosis Hospital course: 46-year-old female patient with history of hypertension, hyperlipidemia, asthma, history of brain tumor was admitted through emergency room with substernal chest pain brought into the emergency room today via EMS for evaluation of chest pain. Initial work-up is consistent with uncontrolled blood pressures with hypertensive urgency as well as acute on chronic kidney disease. Patient is morbidly obese with a BMI of 78.3, Patient was evaluated by cardiology, medications optimized, unable to do ischemia work-up due to patient's morbid obesity Nephrology evaluated the patient closely monitored renal function avoid nephrotoxins and maintain renal dosing of medication the ultrasound negative for abnormality Patient blood pressures blood sugars closely monitored medications optimized. Patient also has obesity hypoventilation syndrome, obstructive sleep apnea oxygen acute O2 sats to more than 90%, CPAP/BiPAP as needed Today patient is comfortable, no new complaints, vital stable .physical examination prior to discharge, physical examination prior to discharge is unremarkable., Patient is hemodynamically and clinically stable at discharge Patient strongly advised to follow-up with primary care physician, private bobbin marker, and lens shaper grinder per schedule Case management assisted with discharge planning. Patient also has tobacco use smoking cessation counseling done and advised nicotine patch as needed., Exercise as tolerated and weight reduction when medically stable. Patient also advised to see bariatric surgeon as outpatient for weight reduction program Today patient is comfortable, no new complaints, stable at discharge. Stable at discharge. Discharge diagnosis: Chest pain Hypertensive urgency Acute on chronic kidney disease/vasomotor nephropathy Acute on chronic diastolic congestive heart failure Obstructive sleep apnea/ obesity hypoventilation syndrome COPD, well compensated Type II diabetes mellitus Morbid obesity BMI 78.3 Ongoing tobacco use vasomotor nephropathy 80 Medical noncompliance Patient feels better no new complaints Cleared by all the consultants for discharge and follow-up per schedule Hemodynamically and stable at discharge Disposition: 06 HOME HEALTH CARE SERVICE Final Discharge Diagnosis (Prints w/discharge instructions): Chest pain. Hypertensive urgency. Acute on chronic kidney disease/vasomotor nephropathy. Acute on chronic diastolic congestive heart failure. Obstructive sleep apnea. Obesity hypoventilation syndrome. COPD well compensated. type 2 diabetes mellitus. Morbid obesity BMI 78.3. Ongoing tobacco use. Medical noncompliance Time spent for discharge: 35 minutes Core Measure Documentation - Palliative Care Palliative Care/ Comfort Measures: Not Applicable - Core Measures Any of the following diagnoses?: none Exam - Constitutional Vitals: Temp Pulse Resp BP Pulse Ox 98.2 F 73 18 179/80 96 02/26/22 09:54 02/26/22 13:32 02/26/22 13:32 02/26/22 13:32 02/26/22 09:54 General appearance: Present: no acute distress, well-nourished, obese (Morbid obesity) - EENT Eyes: Present: PERRL, EOM intact - Neck Neck: Present: supple, normal ROM - Respiratory Respiratory effort: normal Respiratory: bilateral: diminished, rales, negative: rhonchi, wheezing - Cardiovascular Rhythm: regular Heart Sounds: Present: S1 & S2 - Extremities Extremities: no ischemia, No edema - Abdominal General gastrointestinal: Present: soft, non-tender, tender - Integumentary Integumentary: Present: clear, warm - Musculoskeletal Musculoskeletal: strength equal bilaterally, generalized weakness - Psychiatric Psychiatric: appropriate mood/affect, cooperative - Neurologic Neurologic: moves all extremities Plan Activity: advance as tolerated Diet: other (Cardiac diet) Special Instructions: smoking cessation Additional Instructions: If you have worsening symptoms contact MD or go to the nearest emergency room as needed. Strongly advised to comply with medications diet and follow-up visits. Advised to see primary care physician, bobbin marker, lens shaper grinder per schedule. Advised dietary modification, exercise as tolerated and weight reduction when medically stable advised outpatient sleep study at pulmonology/lung doctor's office. Patient advised to see outpatient bariatric surgeon for weight reduction when medically stable Follow up with: PRIMARY CARE, [Primary Care Provider] - 7 Days BRYAN SEWELL MD [Staff Physician] - 7 Days CARYN DAVIS MD [Staff Physician] - 7 Days Prescriptions: carvediloL [Coreg] 25 mg PO BID #60 tablet Hydralazine HCl 50 mg PO TID #60 Furosemide [Lasix TAB] 20 mg PO QDAY #30 tablet traMADoL [Ultram 50 MG tab] 50 mg PO Q6H PRN #12 tablet PRN Reason: Pain, Moderate (4-6)
[2022-02-26] MEDS: hydrALAZINE 20 MG/1 ML INJ IV PRN (16:30)
[2022-02-26] MEDS ORDERED: ALPRAZolam 0.5 MG TAB ONE (16:34)
[2022-02-26 20:56] VITALS: BP 188/90
[2022-02-26] MEDS ORDERED: ALPRAZolam 0.5 MG TAB PO SCH (22:00)
--- NOTE | 2022-02-27 14:05 | Electrocardiograph Report ---
[facility] Test Date: 2022-02-24 Test Time: 02:05:44 Pat Name: ELVIE MCCRAY Department: Room: A484 1 Gender: F Tube Machine Operator: KEYON : 1975 Requested By: SYLVIA YO Order Number: [id number] Reading MD: Allan Sanchez Measurements Intervals [place] Rate: 81 P: 66 GA: 217 QRS: 26 QRSD: 92 T: 146 QT: 453 QTc: 525 Interpretive Statements Sinus rhythm LVH with secondary repolarization abnormality Anterior infarct, old Prolonged QT interval No previous ECG available for comparison Electronically Signed On 02-27-2022 14:05:14 EDT by Allan Sanchez
--- NOTE | 2022-02-27 14:07 | Electrocardiograph Report ---
[facility] Test Date: 2022-02-24 Test Time: 07:49:43 Pat Name: ELVIE MCCRAY Department: Room: A484 1 Gender: F Optical Fabrication Technician: YESI : 1975 Requested By: SYLVIA YO Order Number: [id number] Reading MD: Allan Sanchez Measurements Intervals [place] Rate: 68 P: 60 FL: 209 QRS: 49 QRSD: 86 T: 198 QT: 444 QTc: 472 Interpretive Statements Sinus rhythm Borderline prolonged FL interval Abnormal T, consider ischemia, diffuse leads No previous ECG available for comparison Electronically Signed On 02-27-2022 14:07:46 EDT by Allan Sanchez
--- NOTE | 2022-02-27 14:12 | Electrocardiograph Report ---
[facility] Test Date: 2022-02-24 Test Time: 10:57:06 Pat Name: ELVIE MCCRAY Department: Room: A484 1 Gender: F Pipe Cleaning Machine Operator: YESI : 1975 Requested By: MAXINE HARRIS Order Number: [id number] Reading MD: Allan Sanchez Measurements Intervals [place] Rate: 70 P: 60 [place]: 200 QRS: 36 QRSD: 90 T: 185 QT: 467 QTc: 505 Interpretive Statements Sinus rhythm Consider anterior infarct Consider left ventricular hypertrophy Nonspecific T abnormalities, lateral leads Compared to ECG 02/24/2022 07:49:43 No significant change Electronically Signed On 02-27-2022 14:11:31 EDT by Allan Sanchez
[2022-02-28 12:54] LABS: ANA Screen, IFA Negative (Negative)
== END 2022-02-26 17:45 | disposition home health service (06) | DRG 291 ==
LOC: ED 23:17 → 4A 02-24 05:02
PROVIDERS: ADMIT Internal Medicine Geriatric Medicine; ATTEND Internal Medicine
DX: I13.0 Hypertensive heart and chronic kidney disease with heart failure and stage 1 through stage 4 chronic kidney disease, or unspecified chronic kidney disease (principal); I50.33 Acute on chronic diastolic (congestive) heart failure; N17.0 Acute kidney failure with tubular necrosis; I16.1 Hypertensive emergency; E66.2 Morbid (severe) obesity with alveolar hypoventilation; Z68.45 Body mass index [BMI] 70 or greater, adult; E78.5 Hyperlipidemia, unspecified; F17.200 Nicotine dependence, unspecified, uncomplicated; J44.9 Chronic obstructive pulmonary disease, unspecified; Z80.0 Family history of malignant neoplasm of digestive organs; I25.10 Atherosclerotic heart disease of native coronary artery without angina pectoris; Z88.8 Allergy status to other drugs, medicaments and biological substances; Z91.19 Patient's noncompliance with other medical treatment and regimen
CPT/HCPCS: 36415; 71045; 76770; 80048; 80053; 80074; 80076; 82550; 82553; 82728; 82962; 83880; 84484; 85007; 85025; 86038; 93005; 93306; 99285; G0378; J3490; C8929; J0360; J1940